=== PATIENT | male | born 1945 | race Caucasian/White ===

== ENCOUNTER 2019-06-16 11:02 | Outpatient (CLI) | payer MEDICARE, OTHER ==
[2019-06-17 07:21] LABS: TOTAL PROTEIN SCANNED REPORT
== END 2019-06-16 11:04 ==
LOC: LAB 11:02
PROVIDERS: ATTEND Nurse Practitioner
DX: J84.10 Pulmonary fibrosis, unspecified (principal)
CPT/HCPCS: 36415; 80076

== ENCOUNTER 2019-08-26 11:59 | Outpatient (CLI) | payer MEDICARE, OTHER | END 2019-08-26 12:10 | LOC: LAB 11:59 | PROVIDERS: ATTEND Nurse Practitioner | DX: J84.10 Pulmonary fibrosis, unspecified (principal) | CPT/HCPCS: 36415; 80076 ==

== ENCOUNTER 2019-09-28 11:31 | Outpatient (CLI) | payer MEDICARE, OTHER | END 2019-09-28 11:36 | LOC: LAB 11:31 | PROVIDERS: ATTEND Nurse Practitioner | DX: J84.10 Pulmonary fibrosis, unspecified (principal) | CPT/HCPCS: 36415; 80076 ==

== ENCOUNTER 2019-11-06 16:02 | Outpatient (CLI) | payer MEDICARE, OTHER ==
[2019-11-07 23:08] LABS: TOTAL PROTEIN SCANNED REPORT
== END 2019-11-06 16:07 ==
LOC: LAB 16:02
PROVIDERS: ATTEND Nurse Practitioner
DX: J84.10 Pulmonary fibrosis, unspecified (principal)
CPT/HCPCS: 36415; 80076